=== PATIENT | female | born 1950 | race Caucasian/White ===

== ENCOUNTER 2016-12-07 12:15 | Emergency (ER) | payer MEDICARE ==
[~2016-12-07] VITALS: Ht 165.1 cm; Wt 57.9 kg
[2016-12-07 12:17] VITALS: BP 145/99; PULSE 76; RESP 16; TEMP 98.6; O2SAT 99
[2016-12-07] MEDS ORDERED: BLOOD PRESSURE PO (12:35)
[2016-12-07] MEDS ORDERED: ASPI1TAB69 PO (12:35)
--- NOTE | 2016-12-07 12:44 | PD ---
HPI Chief Complaint: Laceration/Skin Injury Time Seen by Provider: 12:37 Travel History International Travel<30 days: No Contact w/Intl Traveler<30days: No Traveled to known affect area: No History of Present Illness HPI 66-year-old right-hand dominant female presents to ED for evaluation of laceration of the left thumb. Patient states that she was using a large left knife to cut sweet potatoes when she accidentally cut her thumb. She denies numbness, tingling, weakness, limitations to range of motion or loss of strength of the extremity. She immediately put pressure on the wound and presented for evaluation. She is unsure of the date of her last tetanus immunization. PFSH Past Medical History Hx Anticoagulant Therapy: Yes (BABY ASA 3 TIMES A WEEK) Cardiovascular Problems: Yes (HTN) Diminished Hearing: No Hypertension: Yes Tetanus Vaccination: Unknown ?: Not Social History Alcohol Use: Yes (SOC) Tobacco Use: No Substance Use: No Allergies-Medications (Allergen,Severity, Reaction): Coded Allergies: No Known Allergies (Unverified , 12/07/16) Reported Meds & Prescriptions Reported Meds & Active Scripts Active Reported [Blood Pressure] 1 Tab PO DAILY Aspirin 81 Mg Tabdr 81 Mg PO MOWEFR Review of Systems Except as stated in HPI: all other systems reviewed are Neg Physical Exam Narrative GENERAL: Well-nourished, well-developed white female in no acute distress. SKIN: Focused skin assessment warm/dry. There is a 1 cm laceration on the radial aspect distal tip of the right thumb. HEAD: Normocephalic. EYES: No scleral icterus. No injection or drainage. NECK: Supple, trachea midline. No JVD or lymphadenopathy. CARDIOVASCULAR: Regular rate and rhythm without murmurs, gallops, or rubs. RESPIRATORY: Breath sounds equal bilaterally. No accessory muscle use. GASTROINTESTINAL: Abdomen soft, non-tender, nondistended. MUSCULOSKELETAL: No cyanosis, or edema. Focused left upper extremity exam: 2+ radial pulse. Patient retains full, active, painless range of motion of the extremity. Strong finger to thumb opposition on each digit. Neurovascularly intact. BACK: Nontender without obvious deformity. No CVA tenderness. Data Data Last Documented VS Vital Signs Date Time Temp Pulse Resp B/P Pulse Ox O2 Delivery O2 Flow Rate FiO2 12/07/16 12:17 98.6 76 16 145/99 99 Orders Tetanus/Diphtheria Tox Adult (Tetanus/Di (12/07/16 12:45) Lidocaine 1% Inj (50 Ml) (Xylocaine 1% I (12/07/16 12:45) MDM Medical Decision Making Medical Screen Exam Complete: Yes Emergency Medical Condition: Yes Differential Diagnosis Laceration versus abrasion versus partial amputation versus new avulsion versus other Narrative Course 66-year-old right-hand dominant female presents to ED for evaluation of laceration of the left thumb. Patient states that she was using a large left knife to cut sweet potatoes when she accidentally cut her thumb. She denies numbness, tingling, weakness, limitations to range of motion or loss of strength of the extremity. She immediately put pressure on the wound and presented for evaluation. She is unsure of the date of her last tetanus immunization. Vitals reviewed. Physical exam reveals a 1 cm laceration on the radial aspect of the distal tip of the right thumb. The patient retains full, active, painless range of motion of the extremity. Neurovascularly intact. Patient's tetanus immunization was updated. The wound was soaked for approximately 10 minutes of 50-50 mix of Betadine and water. Laceration repair was performed. Please see my procedure note for details. Patient was provided detailed wound care instructions. Suture removal in 5-7 days. She indicated understanding of instructions and is agreeable to the care plan. The patient is stable and discharged home. Procedures Procedure Narrative LACERATION LOCATION: Distal tip, radial aspect right thumb LENGTH: 1 cm NUMBER OF STITCHES/JEAN: 4 REPAIR: The area of the laceration was prepped with Betadine and sterilely draped. A digital block was performed with 1% lidocaine. Adequate anesthesia was obtained. The wound was copiously irrigated and explored without evidence of foreign body, tendon injury or neurovascular injury. The wound was closed using 4-0 Prolene. This was a single layer repair. A sterile dressing was applied. The patient was advised to keep the dressing clean and dry. Patient tolerated the procedure well. Diagnosis Primary Impression: Laceration of left thumb Qualified Code: S61.012A - Laceration of left thumb, initial encounter Referrals: Primary Care Physician Patient Instructions: Care For Your Stitches (ED), Finger Laceration (ED), General Instructions Additional Instructions: Rest, hydrate. Do not change the dressing for 24 hours You may bathe normally. Do not submerge the wound. After bathing pat of wound dry. Allow the wound to air dry for 10-15 minutes. Apply a thin layer of antibiotic ointment and a clean, dry dressing. Change the dressing any time it becomes soiled or wet. Utilize [id number] pain medications, as described on the label, as needed. Suture removal in 5-7 days. Follow-up with primary care provider. Return to the ED for any urgent or emergent medical condition. Disposition: 01 DISCHARGE HOME Condition: Stable Priscila Dumont Dec 07, 2016 12:44
[2016-12-07] MEDS ORDERED: TETANUS/DIPHTHERIA TOXOID ADULT 0.5 ML VIAL IM ONE (12:45)
[2016-12-07] MEDS ORDERED: LIDOCAINE HCL 1% 50 ML VIAL INFIL ONE (12:45)
== END 2016-12-07 13:30 | disposition home or self-care (01) ==
LOC: PHEFT 12:15
DX: S61.012A Laceration without foreign body of left thumb without damage to nail, initial encounter (principal); Z23 Encounter for immunization; Z79.82 Long term (current) use of aspirin; I10 Essential (primary) hypertension; W26.0XXA Contact with knife, initial encounter; Y93.G1 Activity, food preparation and clean up; Y92.9 Unspecified place or not applicable; Y99.8 Other external cause status
CPT/HCPCS: 12001; 90471; 90714

== ENCOUNTER 2016-12-13 07:48 | Emergency (ER) | payer MEDICARE ==
[~2016-12-13] VITALS: Ht 165.1 cm; Wt 58.0 kg
[~2016-12-13 07:48] MED LIST: ASPI1TAB69 PO; BLOOD PRESSURE PO
[2016-12-13 07:55] VITALS: BP 125/79; PULSE 64; RESP 15; TEMP 98.1; O2SAT 98
[2016-12-13] MEDS ORDERED: HYDR12.56 PO (08:02)
--- NOTE | 2016-12-13 08:12 | PD ---
HPI Chief Complaint: Wound/Suture/Staple Re-Check Time Seen by Provider: 08:06 Travel History International Travel<30 days: No Contact w/Intl Traveler<30days: No Traveled to known affect area: No History of Present Illness HPI 66-year-old female here on 12/07/16 with laceration to the left thumb. Sutured. Wound is healing well. Here for suture removal. PFSH Past Medical History Hx Anticoagulant Therapy: Yes (BABY ASA 3 TIMES A WEEK) Cardiovascular Problems: Yes (HTN) Diminished Hearing: No Hypertension: Yes ?: Not Past Surgical History Surgical History: No Previous Surgery Social History Alcohol Use: Yes (SOC) Tobacco Use: No Substance Use: No Allergies-Medications (Allergen,Severity, Reaction): Coded Allergies: No Known Allergies (Unverified , 12/13/16) Reported Meds & Prescriptions Reported Meds & Active Scripts Active Reported Hydrochlorothiazide 12.5 Mg Tab 12.5 Mg PO DAILY Aspirin 81 Mg Tabdr 81 Mg PO MOWEFR Review of Systems General / Constitutional: No: Fever Skin: No Rash Physical Exam Narrative GENERAL: Well-appearing female in no acute distress SKIN: Focused skin assessment warm/dry. Sutures to the left thumb intact, wound is well-healing CARDIOVASCULAR: Regular rate and rhythm. RESPIRATORY: No accessory muscle use. NEUROLOGICAL: Awake and alert. Normal speech. PSYCHIATRIC: Appropriate mood and affect; insight and judgment normal. Data Data Last Documented VS Vital Signs Date Time Temp Pulse Resp B/P Pulse Ox O2 Delivery O2 Flow Rate FiO2 12/13/16 07:55 98.1 64 15 125/79 98 MDM Medical Decision Making Medical Screen Exam Complete: Yes Emergency Medical Condition: Yes Medical Record Reviewed: Yes Differential Diagnosis 66-year-old female here for suture removal of left thumb. Wound is well healing. Sutures are to be removed. Narrative Course Sutures removed, patient discharged home. Diagnosis Primary Impression: Encounter for removal of sutures Referrals: Susi Meza MD (PCP) as needed Patient Instructions: General Instructions Departure Forms: Tests/Procedures Med/Other Pt SpecificInfo: No Change to Meds Disposition: 01 DISCHARGE HOME Condition: Stable Sherry Culp MD Dec 13, 2016 08:12
== END 2016-12-13 08:18 | disposition home or self-care (01) ==
LOC: PHEFT 07:48
DX: Z48.02 Encounter for removal of sutures (principal)
CPT/HCPCS: 99281